=== PATIENT | male | born 1975 | race Caucasian/White ===

== ENCOUNTER 2023-12-25 16:32 | Emergency (ER) | payer SELFPAY ==
[2023-12-25] MEDS ORDERED: Acetaminophen 500 MG TAB ONE (18:29)
[2023-12-25] MEDS ORDERED: Ondansetron ODT 4 MG TAB ONE (18:29)
[2023-12-25 18:47] LABS: Influenza A by NAA Not Detected (NotDetected); Influenza B by NAA Not Detected (NotDetected); SARS-CoV-2 NAA Rapid Test Not Detected (NotDetected)
== END 2023-12-25 19:27 | disposition home or self-care (01) ==
LOC: CSHERS 16:32
DX: K52.9 Noninfective gastroenteritis and colitis, unspecified (principal); Z20.822 Contact with and (suspected) exposure to COVID-19; E11.9 Type 2 diabetes mellitus without complications; I10 Essential (primary) hypertension
CPT/HCPCS: 99284; Q0162